=== PATIENT | male | born 1950 ===

== ENCOUNTER → 2022-10-06 10:09 | Outpatient (BNVA) | payer MEDICARE, BC, SELFPAY | PROVIDERS: PCP Family Medicine; Visit Provider Surgery | DX: Z12.11 Encounter for screening for malignant neoplasm of colon (principal) | CPT/HCPCS: 99024; 99203 ==

== ENCOUNTER 2022-10-30 06:23 | Day surgery (SDC) | payer MEDICARE, BC, SELFPAY ==
[2022-10-27 10:31] VITALS: BMI 29.0
[2022-10-30 06:37] VITALS: BP 157/71; PULSE 66; RESP 18; TEMP 36.3; O2SAT 97
[2022-10-30] MEDS: sodium chloride 0.9% 1,000 ML 30 ML IV (06:51)
--- NOTE | 2022-10-30 06:58 | ANES.PREANE2 ---
Pre-Anesthetic Assessment Height/Weight: Height 1.78 m Weight 91.626 kg Temp Pulse Resp BP Pulse Ox O2 Del Method 97.4 F L 66 18 157/71 97 Room Air 10/30/22 06:37 10/30/22 06:37 10/30/22 06:37 10/30/22 06:37 10/30/22 06:37 10/30/22 06:37 Preop Diagnosis: Screening Operation Date: 10/30/22 07:30 Proposed Procedures p Colonoscopy 32370(Not Applicable) - Satya Whitman DO Familial anesthetic complications: none Was Beta Tisha taken within 24 hours: Yes Was Clonidine taken within 24 hours: N/A Last intake: Intake Last Liquid Date 10/29/22 Last Liquid Time 22:00 Last Solid Date 10/28/22 Last Solid Time 19:00 Social No alcohol and No tobacco Exam alert, oriented x 3, clear to auscultation bilaterally and regular rate & rhythm Airway Submandibular: within normal limits Cervical ROM: within normal limits Mallampati: Class II Dentition: chipped Pulmonary None reported CV/HEM Hypertension None reported Hepatic None reported GI None reported Metabolic [place] [facility] [place] [facility] [place] None reported Neuropsych None reported Anesthetic Plan ASA status: 2 Anesthesia: MAC Risk of > 500 ml blood loss (7ml/kg in children): No Medications/Allergies Home Medications Medication Instructions Recorded Confirmed Last Taken Type atenolol 25 mg tablet 25 mg PO DAILY 10/06/22 10/30/22 10/29/22 History fexofenadine 60 mg tablet (Nette 60 mg PO DAILY 10/06/22 10/30/22 10/29/22 History Allergy) levothyroxine 150 mcg capsule 150 mcg PO DAILY 10/06/22 10/30/22 10/30/22 History lisinopril 5 mg tablet 5 mg PO DAILY 10/06/22 10/30/22 10/29/22 History Allergies Allergy/AdvReac Type Severity Reaction Status Date / Time No Known Allergies Allergy Unverified 10/30/22 06:35 Current Medications Generic Name Dose Route Start Last Admin Trade Name Freq PRN Reason Stop Dose Admin Sodium Chloride 1,000 mls @ 30 mls/hr 10/30/22 06:30 10/30/22 06:51 Sodium Chloride 0.9% IV 10/31/22 06:29 30 mls/hr .Q24H DANGELO Administration PFSH Anesthesia Medical History (Updated 10/06/22 @ 10:37 by Satya Whitman DO) Hypertension Hypothyroid Surgical History (Updated 10/06/22 @ 10:36 by Satya Whitman DO) History of tonsillectomy and adenoidectomy Social History Smoking and tobacco status: former smoker Data Anesthesia Cardiac Studies: No Data to Display
--- NOTE | 2022-10-30 07:33 | W.PM.OPSUD ---
Surgery/Procedure H&P Update DATE OF PROCEDURE: October 30, 2022 DATE H&P PERFORMED: 10/06/22 H&P UPDATE INFORMATION: I have reviewed H&P completed within last 30 days, I have examined patient prior to procedure and No changes to prior documentation PREOP DIAGNOSIS: Screening PLANNED PROCEDURE: Operation Date: 10/30/22 07:30 Proposed Procedures p Colonoscopy 85062(Not Applicable) - Satya Whitman, DO
[2022-10-30 07:55] VITALS: BP 121/56; PULSE 59; RESP 16; TEMP 36.1; O2SAT 97
[2022-10-30 08:11] VITALS: BP 139/66; PULSE 62; RESP 18; O2SAT 97
--- NOTE | 2022-10-30 12:36 | ANE.PACU2 ---
Inpatient post-anesthesia follow up: Airway intact: Yes Vital signs: Temperature 97 F Pulse Rate 62 Respiratory Rate 18 Blood Pressure 139/66 Pulse Oximetry 97 Oxygen Delivery Me thod Room Air Oxygen Flow Rate Fraction of Inspir ed Oxygen Hydration adequate: Yes Nausea and vomiting: No Pain level: 2 Mental status: Baseline
== END 2022-10-30 08:25 | disposition home or self-care (01) ==
PROVIDERS: PCP Family Medicine; Visit Provider Surgery
PROC: 0DJD8ZZ Inspection of Lower Intestinal Tract, Via Natural or Artificial Opening Endoscopic (ICD-10-PCS; CPT 45378; principal; 2022-10-30 07:30)
DX: Z12.11 Encounter for screening for malignant neoplasm of colon (principal); K64.8 Other hemorrhoids; E03.9 Hypothyroidism, unspecified; I10 Essential (primary) hypertension; Z87.891 Personal history of nicotine dependence
CPT/HCPCS: G0121; J2704; J7030